=== PATIENT | male | born 1960 | race Caucasian/White ===

== ENCOUNTER → 2018-03-08 | Outpatient (CLI) | payer OTHER ==
[~2018-03-08] MED LIST: ALLOPURINOL100 MG PO; AZITHROMYCIN250 MG PO; CELEBREX100 MG PO; CELEXA40 MG PO; COMBIVENT RESPIM4 GM IH; GABAPENTIN800 MG PO; LISINOPRIL10 MG PO; METHADONE HCL10 MG PO; OMEPRAZOLE40 MG PO; PERCOCET 10-321 EACH
--- NOTE | 2018-03-08 12:59 | Diagnostic Imaging Report ---
Left knee MRI without contrast. History: Knee pain. Internal arrangement. Fall. Decreased range of motion Comparison: None. Technique: Multiplanar multi-sequence MRI of the knee without contrast. Findings: Medial compartment: There is a complex tear involving the posterior horn and body segments of the medial meniscus best seen on coronal series 5 image 14. The medial compartmental articular cartilage surfaces are slightly thinned with regions of fraying and fissuring. The medial collateral ligament complex is intact. Lateral compartment: No meniscal tear or cartilage abnormality. The LCL complex is normal. Intercondylar notch: The ACL and PCL are intact. Patellofemoral compartment: There is articular cartilage fraying and deep fissuring in the patellofemoral compartment with underlying bone marrow edema most pronounced at the median ridge of the patella best seen on series 2 image 14. Extensor mechanism: The quadriceps and patellar tendons are normal. Other findings: There is a joint effusion and synovitis. There is no acute fracture, subluxation or avascular necrosis. There is a tiny King's cyst. 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 Articular cartilage fraying and deep fissuring in the patellofemoral compartment with underlying bone marrow edema. Signed by: Dr. Carlo Templeton M.D. on 03/08/2018 12:56 PM
== END ==
LOC: MRI 10:29
PROVIDERS: ATTEND Specialist
DX: M23.92 Unspecified internal derangement of left knee (principal)

== ENCOUNTER 2021-02-05 11:43 | Emergency (ER) | payer OTHER ==
[~2021-02-05] VITALS: Ht 205.7 cm; Wt 90.3 kg
[2021-02-05] MEDS ORDERED: CASIRIVIMAB/IMDEVIMAB 10 ML in SODIUM CHLORIDE 0.9% 100 ML IV ONE (12:30)
[2021-02-05] MEDS ORDERED: SODIUM CHLORIDE 0.9% 500ML 500 ML IV ONE (12:30)
[2021-02-05] MEDS: ONDANSETRON HCL INJ 2MG/ML 2ML 2 MG/ML VIAL IV NR ×2 (12:35→12:51)
== END 2021-02-05 14:20 | disposition home or self-care (01) ==
LOC: ER 12:15
DX: U07.1 COVID-19 (principal); I10 Essential (primary) hypertension; Z95.1 Presence of aortocoronary bypass graft; E11.9 Type 2 diabetes mellitus without complications
CPT/HCPCS: 99283; J2405; J7040; J7050

== ENCOUNTER 2021-02-07 10:16 | Emergency (ER) | payer OTHER ==
[~2021-02-07] VITALS: Ht 205.7 cm; Wt 90.3 kg
[2021-02-07] MEDS ORDERED: PROVENTIL HFA6.7 GM INH (10:47)
[2021-02-07] MEDS ORDERED: ONDANSETRON ODT4 MG PO (10:47)
== END 2021-02-07 12:58 | disposition home or self-care (01) ==
LOC: ER 10:42
DX: U07.1 COVID-19 (principal); R05 Cough; J44.9 Chronic obstructive pulmonary disease, unspecified; F17.200 Nicotine dependence, unspecified, uncomplicated; E11.22 Type 2 diabetes mellitus with diabetic chronic kidney disease; I12.9 Hypertensive chronic kidney disease with stage 1 through stage 4 chronic kidney disease, or unspecified chronic kidney disease; N18.9 Chronic kidney disease, unspecified; G89.29 Other chronic pain; M54.9 Dorsalgia, unspecified; Z79.899 Other long term (current) drug therapy
CPT/HCPCS: 99283

== ENCOUNTER 2022-07-16 19:32 | Emergency (ER) | payer OTHER ==
[~2022-07-16] VITALS: Ht 205.7 cm; Wt 90.3 kg
[~2022-07-16 19:32] MED LIST changes: +ONDANSETRON ODT4 MG PO; +PROVENTIL HFA6.7 GM INH
[2022-07-16 19:56] LABS: BASOPHILS % 0.3 % (0.0-1.0); EOSINOPHILS # (AUTO) 0.5 (0.0-0.4); EOSINOPHILS % 6.2 % (0.0-6.0); HEMATOCRIT 48.7 % (38.2-49.6); HEMOGLOBIN 14.9 g/dL (14.0-18.0); LYMPHOCYTES # (AUTO) 3.6 (1.0-3.2); LYMPHOCYTES % 41.3 % (18.0-39.1); MEAN CORPUSCULAR HEMOGLOBIN 28.7 pg (28-32); MEAN CORPUSCULAR HGB CONC 30.6 g/dL (31-35); MEAN CORPUSCULAR VOLUME 93.7 fL (81-99); MONOCYTES # (AUTO) 0.7 (0.2-0.8); MONOCYTES % 7.7 % (4.4-11.3); NEUTROPHILS # (AUTO) 3.8 (2.1-6.9); PLATELET COUNT 122 x10e3/uL (140-360); RED CELL DISTRIBUTION WIDTH 12.5 % (11.7-14.4)
[2022-07-16 20:20] LABS: ALANINE AMINOTRANSFERASE 40 IU/L (0-55); ALBUMIN 4.1 g/dL (3.5-5.0); ALBUMIN/GLOBULIN RATIO 1.2 (0.8-2.0); ALKALINE PHOSPHATASE 91 IU/L (40-150); ANION GAP 13.3 mmol/L (8-16); BLOOD UREA NITROGEN 9 mg/dL (7-26); BUN/CREATININE RATIO 10 (6-25); CALCIUM 9.8 mg/dL (8.4-10.2); CARBON DIOXIDE 29 mmol/L (22-29); CHLORIDE 102 mmol/L (98-107); CREATINE KINASE 114 IU/L (30-200); GLUCOSE 116 mg/dL (74-118); POTASSIUM 4.3 mmol/L (3.5-5.1); SODIUM 140 mmol/L (136-145)
== END 2022-07-16 22:34 | disposition other institution (70) ==
LOC: ER 19:35
DX: R06.02 Shortness of breath (principal); R07.89 Other chest pain; R00.1 Bradycardia, unspecified; Z20.822 Contact with and (suspected) exposure to COVID-19; R94.31 Abnormal electrocardiogram [ECG] [EKG]
CPT/HCPCS: 36415; 71045; 80053; 82550; 82553; 83880; 84484; 85025; 93005; 99284; U0002